=== PATIENT | male | born 1995 | race Native Hawaiian/Other Pacific Islander ===

== ENCOUNTER 2020-05-19 08:03 | Emergency (ER) | payer OTHER ==
[~2020-05-19] VITALS: Ht 175.3 cm; Wt 70.3 kg
[2020-05-19 08:15] VITALS: TEMP 98.9
[2020-05-19 09:35] VITALS: BP 136/78
== END 2020-05-19 09:36 | disposition home or self-care (01) ==
LOC: ED 08:03
DX: S39.012A Strain of muscle, fascia and tendon of lower back, initial encounter (principal); M62.830 Muscle spasm of back
CPT/HCPCS: 96372; 99282; J1885